=== PATIENT | female | born 1990 | race Caucasian/White ===

== ENCOUNTER → 2024-05-30 14:47 | Outpatient (REF) | payer BC, SELFPAY | LOC: HWRAD 14:47 | PROVIDERS: ATTENDING PHYSICIAN Physician Assistant | DX: E01.0 Iodine-deficiency related diffuse (endemic) goiter (principal) | CPT/HCPCS: 76536 ==

== ENCOUNTER → 2024-08-30 11:38 | Outpatient (REF) | payer OTHER, SELFPAY ==
[2024-08-30 17:19] LABS: Rubella Positive
[2024-08-30 20:45] LABS: Hepatitis B Surface Antibody Positive
[2024-09-01 06:45] LABS: Quantiferon Mitogen minus NIL 9.96 IU/mL; Quantiferon NIL 0.05 IU/mL; Quantiferon TB Gold Plus Negative (Negative)
== END ==
LOC: REG 11:38
PROVIDERS: ATTENDING PHYSICIAN Nurse Practitioner Family
DX: Z23 Encounter for immunization (principal)
CPT/HCPCS: 36415; 86480; 86706; 86735; 86762; 86765; 86787